=== PATIENT | female | born 1990 | race Caucasian/White ===

== ENCOUNTER 2019-03-29 16:12 | Emergency (ER) | payer OTHER ==
[~2019-03-29] VITALS: Ht 160 cm; Wt 60.0 kg
[~2019-03-29 16:12] MED LIST: NOCURR
[2019-03-29] MEDS ORDERED: BUPIVACAINE HCL/PF 0.25% 10 ML VIAL INJ ONE (19:00)
[2019-03-29] MEDS ORDERED: LIDOCAINE 1%/EPI 1:200,000/PF 10 ML VIAL INJ ONE (19:00)
[2019-03-29] MEDS ORDERED: PERTUSS(ACELL),DIPH,TET VAC/PF 0.5 ML VIAL IM ONE (19:00)
[2019-03-29] MEDS ORDERED: LIDOCAINE 1% 10 ML VIAL INJ ONE (20:00)
[2019-03-29] MEDS ORDERED: BACITRACIN 0.9 GM PACKET OINTMENT TP ONE (20:30)
[2019-03-29 21:13] VITALS: BP 129/88
== END 2019-03-29 21:05 | disposition home or self-care (01) ==
LOC: EMS 16:19
DX: S61.312A Laceration without foreign body of right middle finger with damage to nail, initial encounter (principal); R03.0 Elevated blood-pressure reading, without diagnosis of hypertension; Z88.0 Allergy status to penicillin; W26.8XXA Contact with other sharp object(s), not elsewhere classified, initial encounter; Y93.89 Activity, other specified; Y92.89 Other specified places as the place of occurrence of the external cause; Y99.8 Other external cause status
CPT/HCPCS: 12001; 90471; 90715; 99283; J3490 ×2